=== PATIENT | male | born 1950 | race Caucasian/White ===

== ENCOUNTER 2017-01-16 05:25 | Day surgery (SDC) | payer MEDICARE, OTHER ==
[2017-01-14 10:16] LABS: HEMOGLOBIN 13.3 g/dL (13.6-17.8)
[2017-01-14 10:22] LABS: HEMATOCRIT 41.1 % (40.0-51.0)
[2017-01-14 10:34] LABS: BUN (BLOOD UREA NITROGEN) 51 MG/DL (6-23); CHLORIDE, SERUM 103 MMOL/L (96-112); CO2 (CARBON DIOXIDE) 28 MMOL/L (24-34); GFR AFRICAN AMERICAN 39 ML/MIN (>=60); GFR NON AFRICAN AMERICAN 34 ML/MIN (>=60); GLUCOSE, SERUM 104 MG/DL (60-99); POTASSIUM, SERUM 4.1 MMOL/L (3.5-5.3); SODIUM, SERUM 141 MMOL/L (135-148)
--- NOTE | ~2017-01-16 | OP ---
Record Of Operation [facility] [address] [facility] [place]. [address] NAME: MEGA COVARRUBIAS : 50 STATUS : [facility]#: [id number] AGE: 66 ADM/REG DATE : 01/16/17 MR#: [id number] REPORT SERV DATE: 01/16/17 DICTATED BY: CLAUDIO ARZOLA DATE: 01/16/17 REPORT STATUS : Draft TRANSCRIBED BY: MODL DATE: 01/16/17 DATE OF PROCEDURE: 01/16/2017 PREOPERATIVE DIAGNOSIS: Squamous cell carcinoma, coronal scalp. POSTOPERATIVE DIAGNOSIS: Squamous cell carcinoma, coronal scalp. PROCEDURE PERFORMED: 1. Wide local excision, squamous cell carcinoma, scalp. 2. Outer table craniectomy. 3. Full-thickness skin graft reconstruction of 5 cm x 5 cm defect. SURGEON: Claudio Arzola M.D. [employer]ILITY OPERATOR: Hunter Figueroa M.D. ANESTHESIA: General. COMPLICATIONS: None. CONDITION: Stable to recovery. INDICATIONS: A 66-year-old male with a history of heart and lung transplant with squamous cell carcinoma of the left coronal scalp. PROCEDURE IN DETAIL: The patient was identified in preoperative holding, taken back to the operating room, and placed supine on the operating room table. General anesthesia was established. He was prepped and draped in standard fashion for the operation. A time-out was called. The patient and procedure were confirmed. A 1 cm margin was marked around the left coronal scalp squamous cell carcinoma and infiltrated subcutaneously with 1% lidocaine with 1:100,000 epinephrine. The left supraclavicular fossa was outlined with a surgical marking pen in an elliptical fashion for the full-thickness skin graft. Both areas were infiltrated subcutaneously with 1% lidocaine with 1:100,000 epinephrine. A total of 8 mL was used. Using 2.5x loupe magnification and headlight illumination, the operation was commenced. A needle-tip cautery set on 15 CUT 25 COAG was used to excise around the lesion of the scalp using both the CUT and COAG modes. The incision went down to the galea, and we elevated the tissue off the skull deep to the galea and superficial to the pericranium. Toward the central portion of the lesion, the tumor did appear to extend to the pericranium, so we went deep to the pericranium exposing the bald skull. We stitched that specimen at 12 o'clock superior anterior and sent it for frozen section. The frozen section showed no evidence of persistent cancer deeper on peripheral margins. The defect measured 5 cm x 5 cm. The left supraclavicular fossa, full-thickness skin graft was harvested with needle tip cautery. It was meshed with a 15 blade and inset to the wound Record Of [address] [address] NAME: MEGA COVARRUBIAS : 50 STATUS : [facility]#: [id number] AGE: 66 ADM/REG DATE : 01/16/17 MR#: [id number] REPORT SERV DATE: 01/16/17 DICTATED BY: CLAUDIO ARZOLA DATE: 01/16/17 REPORT STATUS : Draft TRANSCRIBED BY: NAHOMI DATE: 01/16/17 with 4-0 chromic suture. A bolster dressing was placed with Xeroform gauze and saline- soaked cotton balls using 2-0 silk sutures. The donor site was closed in two layers using 3 0 Vicryl suture for the platysma and for the subcuticular space followed by Dermabond and Steri-Strips. The patient was awakened and taken to recovery in a stable condition. There were no complications. PH/NAHOMI Claudio Arzola M.D. / [id number] CC: Marin Skaggs M.D.
[~2017-01-16 05:25] MED LIST: ACIDOPHILU2 PO; APRES25 PO; ASAB PO; BAC PO; BACTRIM DS1 TAB PO; FERRETTS325 MG PO; FERROUS SULF325 M1 PO; FOLIC PO; IRON160 MG PO; LOP50 PO; MULTIPLE VIT PO; P5 PO; PRILO PO; PROGRAF0.5 PO; PROGRAF1 PO; RAPAMUNE PO; REG5 PO; SPORANOX PO; STOOL SOFTEN100 MG PO; STOOL SOFTENER PO; VITD PO; ZITH250 PO; ZOCOR20 PO
[2017-06-17] MEDS ORDERED: ZYVOXPO PO (12:29)
== END 2017-01-16 11:29 | disposition home or self-care (01) ==
LOC: SDC 05:25
PROVIDERS: Specialist
PROC: 0HR0X73 Replacement of Scalp Skin with Autologous Tissue Substitute, Full Thickness, External Approach (ICD-10-PCS; principal; 2017-01-16 07:15)
DX: C44.42 Squamous cell carcinoma of skin of scalp and neck (principal); N18.3 Chronic kidney disease, stage 3 (moderate); I12.9 Hypertensive chronic kidney disease with stage 1 through stage 4 chronic kidney disease, or unspecified chronic kidney disease; J42 Unspecified chronic bronchitis
CPT/HCPCS: 80048; 85014; 85018; 88305; 88331; 88332; 93005; J0690; J1720; J2250; J2405; J2550; J3010

== ENCOUNTER 2017-06-18 15:03 | Inpatient (IN) | payer MEDICARE, OTHER ==
[~2017-06-18] VITALS: Ht 172.7 cm; Wt 88.5 kg
--- NOTE | ~2017-06-18 | CN ---
Consultation Report [facility] [address] [place]. [address] NAME: MEGA COVARRUBIAS : 50 STATUS : ADM IN PAT#: [id number] AGE: 66 ADM/REG DATE : 06/18/17 MR#: [id number] REPORT SERV DATE: 06/20/17 DICTATED BY: MAXIMILIAN MAYER DATE: 06/19/17 REPORT STATUS : Draft TRANSCRIBED BY: MODL DATE: 06/19/17 CONSULTATION DATE OF CONSULTATION: REASON FOR CONSULTATION: Acute kidney injury. HISTORY OF PRESENT ILLNESS: This is a very pleasant 66-year-old male patient, who was admitted to Dr. Jerry Ferris's service for partial SBO versus severe ileus. He states that over the last 24-48 hours, he has continued to have worsening nausea and has had poor p.o. intake over the last three to five days. He began to have difficulty with emesis over the last 48 hours and presented here to [facility] for evaluation. He is noted to have a small bowel dilation with gas and stool in the colon that likely is consistent with a small-bowel obstruction or severe ileus. We are consulted to evaluate him for acute kidney injury. He is followed in the outpatient setting by the [facility] for heart and lung transplantation in chronically follows there every six months. He states that his creatinine baseline ranges around 1.7 to 2.02 by his recall. We have last seen him in our office in 2011 post hospitalization with a baseline creatinine around that time, approximately 1.3 to 1.6. The patient denies chronic use of nonsteroidal medications and has had no other difficulty of late according to review this afternoon. His spouse is at bedside. He denies current chest pain. Does have an NG tube to low intermittent suction in place with bilious colored drainage and appears to have no other complaint. PAST MEDICAL HISTORY: Positive for heart and lung transplantation followed closely by the [facility] with chronic immunosuppression. History is also positive for chronic kidney disease, stage 3; anemia; tendency towards hyperkalemia; previous sepsis; history of diverticular abscess; history of ischemic cardiomyopathy; and alpha-1 antitrypsin disease prior to cardiac transplantation; and hypertension. REVIEW OF SYSTEMS: Review of systems is completed. Please see HPI for pertinent details. SOCIAL HISTORY: No ETOH. No illicit drugs. No tobacco. FAMILY HISTORY: Noncontributory and not reviewed during this consultation and dictation. ALLERGIES: HE LISTS NO KNOWN MEDICATION ALLERGIES. ACTIVE MEDICATIONS: Include ASA 81 mg daily; 250 mg prophylaxis of azithromycin daily; Colace 100 mg p.o. daily; vitamin D 50,000 units p.o. q.2 weeks; ferrous sulfate 325 mg p.o. daily; folic acid 1 mg p.o. daily; Apresoline 25 mg p.o. t.i.d.; Sporanox 200 mg p.o. daily; acidophilus one tablet p.o. daily; Zyvox 600 mg p.o. q.12; Lopressor 50 mg p.o. b.i.d.; multivitamin tablet one daily; omeprazole 20 mg p.o. daily; prednisone 5 mg p.o. daily; Zocor 20 mg p.o. at bedtime; Rapamune 0.5 mg p.o. daily; Bactrim one tablet on Saturday, Consultation Report [address] [address] NAME: MEGA COVARRUBIAS : 50 STATUS : ADM IN PAT#: [id number] AGE: 66 ADM/REG DATE : 06/18/17 MR#: [id number] REPORT SERV DATE: 06/20/17 DICTATED BY: MAXIMILIAN MAYER DATE: 06/19/17 REPORT STATUS : Draft TRANSCRIBED BY: NAHOMI DATE: 06/19/17Saturday, Saturday; Prograf 1 mg tablets, 0.5 dosing daily; and an unidentified stool softener. PHYSICAL EXAMINATION: VITAL SIGNS: Blood pressure at 166/86, temperature 97.5, respiratory rate is 16, heart rate 90 beats per minute. He is 2137 in, 1603 out. GENERAL: He is an obese appearing, acutely ill male patient, lying in bed during evaluation. HEENT: Normocephalic and atraumatic. Normal ocular movements. No scleral icterus. No conjunctival pallor is appreciated. He does have an NG tube in his right naris with bilious colored drainage in the canister appears to be low intermittent suction. NECK: Supple without thyromegaly. No JVD or mass. CHEST: Shows positive S1 and S2. No rubs or gallops. LUNGS: Diminished throughout. Normal expansion and effort bilaterally. No rhonchi or wheezes are appreciated on auscultation. GI: Examination shows a rounded abdomen, obese, non-firm. No evidence of overt ascites with some tenderness is elicited to palpation in his right lower quadrant. : Deferred. NEUROLOGIC: Appears to be grossly intact. Nonfocal. SKIN: Warm, dry, and intact to visualized surfaces. No rash, lesions, or ecchymosis. EXTREMITIES: Show positive pulses to all four extremities. He does have noted lower extremity edema bilaterally, pitting approximately +1 to +2, which he states is chronic for him and is related to his sodium intake. LABORATORY DATA: Pertinent laboratories and imaging to this evaluation. Abdominal imaging indicates probable small-bowel obstruction versus severe ileus with NG tube in place. Most recent CBC shows white blood count 7.1, RBC 3.29, hemoglobin 8.5, hematocrit 27.2, platelets at 78. Comprehensive metabolic panel: Sodium 137, potassium 4.9, chloride 100, CO2 of 33, BUN 31, creatinine at 2.23. Reflected GFR at 30 mL/minute. Calcium 8.1, albumin 2.78. ALT and AST are 17 and 18 respectively. Urinalysis; negative for protein and glucose. Minimal white blood cells and red blood cells. IMPRESSION AND PLAN: This is a 66-year-old male patient, followed in the outpatient setting chronically by the [facility] for heart and lung transplantation. He states his creatinine baseline is 1.7 to 2.03. He was previously seen in [id number] by our service and with last available data at the hospital on 11/12/2012 at 1.6 creatinine on discharge home. He reports to [facility] with recent difficulty with p.o. intake and recent nausea and vomiting with elevated creatinine and noted SBO versus ileus. He does not appear to be on offensive medications. It is likely volume contracted due to his nausea and vomiting and poor p.o. intake. We will check urine studies. Check postvoid residual. Check renal ultrasound for completeness treatment. Defer major medical management to the primary team and hospitalist service. He will be evaluated by Infectious Disease with known medical history as listed above, and he is previously known by Dr. Romero, who saw him during a previous admission for a sepsis diagnosis. We will check as well Prograf and Rapamune levels and continue immunosuppressants as are in place for his heart and lung Consultation Report [facility] [address] [place]. [address] NAME: MEGA COVARRUBIAS : 50 STATUS : ADM IN PAT#: [id number] AGE: 66 ADM/REG DATE : 06/18/17 MR#: [id number] REPORT SERV DATE: 06/20/17 DICTATED BY: MAXIMILIAN MAYER DATE: 06/19/17 REPORT STATUS : Draft TRANSCRIBED BY: MODL DATE: 06/19/17 transplantation. Further modification of treatment plan may be made based on clinical presentation of the patient, laboratory results, and further consultation with renal attending. We appreciate consultation. We are glad to follow. DICTATED BY: Cristobal Souza NP JR/NAHOMI Maximilian Mayer M.D. / [id number] CC: Marin Rivera M.D.
[~2017-06-18 15:03] MED LIST changes: +ZYVOXPO PO
[2017-06-18 17:41] LABS: CALCIUM, SERUM 8.6 MG/DL (8.5-10.4); CHLORIDE, SERUM 100 MMOL/L (96-112); CO2 (CARBON DIOXIDE) 28 MMOL/L (24-34); CREATININE 2.43 MG/DL (0.70-1.30); GFR AFRICAN AMERICAN 31 ML/MIN (>=60); GFR NON AFRICAN AMERICAN 27 ML/MIN (>=60); POTASSIUM, SERUM 4.5 MMOL/L (3.5-5.3); SGOT(AST) 17 U/L (5-40); SGPT(ALT) 22 U/L (5-65); SODIUM, SERUM 136 MMOL/L (135-148); TOTAL BILIRUBIN 0.5 MG/DL (0-1.2); TOTAL PROTEIN 6.5 G/DL (6.0-8.5)
[2017-06-18 17:42] LABS: A/G RATIO 0.9 (0.7-1.9); ALKALINE PHOSPHATASE 85 U/L (45-117); BUN (BLOOD UREA NITROGEN) 33 MG/DL (6-23); GLOBULIN 3.5 G/DL (2.5-4.1); GLUCOSE, SERUM 132 MG/DL (60-99)
[2017-06-18 18:03] LABS: BASOPHILS 0.2 %; BASOPHILS ABSOLUTE 0.02 10/3/uL (0.0-0.16); EOSINOPHILS 0.2 %; EOSINOPHILS ABSOLUTE 0.02 10/3/uL (0.0-0.53); HEMOGLOBIN 9.2 g/dL (13.6-17.8); IMMATURE GRANULOCYTES 0.9 %; IMMATURE GRANULOCYTES ABSOLUTE 0.07 10/3/uL (0.0-0.11); LYMPHOCYTES 9.2 %; LYMPHOCYTES ABSOLUTE 0.75 10/3/uL (0.67-4.30); MEAN CORPUS HGB CONC 31.7 g/dL (32.0-36.0); MEAN PLATELET VOLUME 9.3 fL (9.2-13.0); MONOCYTES 7.6 %; MONOCYTES ABSOLUTE 0.62 10/3/uL (0.21-1.20); NEUTROPHILS 81.9 %; NEUTROPHILS ABSOLUTE 6.64 10/3/uL (2.02-8.40); RBC DISTRIBUTION WIDTH 15.8 % (12.0-16.0); RED CELL COUNT 3.56 10/6/uL (4.7-6.1); WHITE BLOOD CELLS 8.1 10/3/uL (4.5-10.5)
[2017-06-18 18:05] LABS: MEAN CORPUSCULAR HEMOGLOB 25.8 pg (26.0-34.0); MEAN CORPUSCULAR VOLUME 81.5 fL (80-100); PLATELET COUNT 102 10/3/uL (150-400)
[2017-06-18 18:06] LABS: MANUAL DIFF NO %
[2017-06-19 00:32] LABS: ASCORBIC ACID (UR NOT ORDER) NEG (NEG); BILIRUBIN, URINE NEGATIVE (NEG); KETONE, URINE NEGATIVE (NEG); LEUKOCYTE ESTERASE(NOT OR NEG (NEG); WBC (NOT ORDERED) (RFLEX) 2 (0-5)
[2017-06-19 04:07] LABS: BASOPHILS 0.3 %; BASOPHILS ABSOLUTE 0.02 10/3/uL (0.0-0.16); EOSINOPHILS 2.5 %; EOSINOPHILS ABSOLUTE 0.18 10/3/uL (0.0-0.53); HEMATOCRIT 27.2 % (40.0-51.0); HEMOGLOBIN 8.5 g/dL (13.6-17.8); IMMATURE GRANULOCYTES 0.3 %; IMMATURE GRANULOCYTES ABSOLUTE 0.02 10/3/uL (0.0-0.11); LYMPHOCYTES 10.1 %; LYMPHOCYTES ABSOLUTE 0.72 10/3/uL (0.67-4.30); MANUAL DIFF NO %; MEAN CORPUS HGB CONC 31.3 g/dL (32.0-36.0); MEAN CORPUSCULAR HEMOGLOB 25.8 pg (26.0-34.0); MEAN CORPUSCULAR VOLUME 82.7 fL (80-100); MEAN PLATELET VOLUME 8.7 fL (9.2-13.0); MONOCYTES 10.5 %; MONOCYTES ABSOLUTE 0.75 10/3/uL (0.21-1.20); NEUTROPHILS 76.3 %; NEUTROPHILS ABSOLUTE 5.43 10/3/uL (2.02-8.40); PLATELET COUNT 78 10/3/uL (150-400); RBC DISTRIBUTION WIDTH 15.9 % (12.0-16.0); RED CELL COUNT 3.29 10/6/uL (4.7-6.1); WHITE BLOOD CELLS 7.1 10/3/uL (4.5-10.5)
[2017-06-19 04:22] LABS: A/G RATIO 0.9 (0.7-1.9); ALBUMIN 2.7 G/DL (3.5-5.0); BUN (BLOOD UREA NITROGEN) 31 MG/DL (6-23); CALCIUM, SERUM 8.1 MG/DL (8.5-10.4); CHLORIDE, SERUM 100 MMOL/L (96-112); CREATININE 2.23 MG/DL (0.70-1.30); GFR AFRICAN AMERICAN 34 ML/MIN (>=60); GFR NON AFRICAN AMERICAN 30 ML/MIN (>=60); GLOBULIN 3.1 G/DL (2.5-4.1); GLUCOSE, SERUM 131 MG/DL (60-99); POTASSIUM, SERUM 4.9 MMOL/L (3.5-5.3); SGOT(AST) 18 U/L (5-40); SGPT(ALT) 17 U/L (5-65); SODIUM, SERUM 137 MMOL/L (135-148); TOTAL BILIRUBIN 0.3 MG/DL (0-1.2); TOTAL PROTEIN 5.8 G/DL (6.0-8.5)
[2017-06-19 04:25] LABS: ALKALINE PHOSPHATASE 72 U/L (45-117); CO2 (CARBON DIOXIDE) 33 MMOL/L (24-34)
[2017-06-19 04:48] LABS: PLATELET ESTIMATE DEC (ADEQUATE)
[2017-06-19 04:49] LABS: GIANT PLATELET OCC
[2017-06-20 05:59] LABS: BASOPHILS 0.2 %; BASOPHILS ABSOLUTE 0.01 10/3/uL (0.0-0.16); EOSINOPHILS 2.6 %; EOSINOPHILS ABSOLUTE 0.15 10/3/uL (0.0-0.53); HEMATOCRIT 26.1 % (40.0-51.0); HEMOGLOBIN 8.3 g/dL (13.6-17.8); IMMATURE GRANULOCYTES 0.3 %; IMMATURE GRANULOCYTES ABSOLUTE 0.02 10/3/uL (0.0-0.11); LYMPHOCYTES 10.7 %; LYMPHOCYTES ABSOLUTE 0.61 10/3/uL (0.67-4.30); MEAN CORPUS HGB CONC 31.8 g/dL (32.0-36.0); MEAN CORPUSCULAR HEMOGLOB 26.1 pg (26.0-34.0); MEAN CORPUSCULAR VOLUME 82.1 fL (80-100); MEAN PLATELET VOLUME 8.9 fL (9.2-13.0); MONOCYTES 11.4 %; MONOCYTES ABSOLUTE 0.65 10/3/uL (0.21-1.20); NEUTROPHILS 74.8 %; NEUTROPHILS ABSOLUTE 4.28 10/3/uL (2.02-8.40); PLATELET COUNT 70 10/3/uL (150-400); RED CELL COUNT 3.18 10/6/uL (4.7-6.1); WHITE BLOOD CELLS 5.7 10/3/uL (4.5-10.5)
[2017-06-20 06:01] LABS: MANUAL DIFF NO %
[2017-06-20 06:17] LABS: ALBUMIN 2.4 G/DL (3.5-5.0); BUN (BLOOD UREA NITROGEN) 26 MG/DL (6-23); CALCIUM, SERUM 7.6 MG/DL (8.5-10.4); CHLORIDE, SERUM 100 MMOL/L (96-112); CO2 (CARBON DIOXIDE) 31 MMOL/L (24-34); CREATININE 1.93 MG/DL (0.70-1.30); GFR AFRICAN AMERICAN 41 ML/MIN (>=60); GFR NON AFRICAN AMERICAN 35 ML/MIN (>=60); GLUCOSE, SERUM 121 MG/DL (60-99); PHOSPHORUS, SERUM 2.2 MG/DL (2.5-4.5); POTASSIUM, SERUM 4.6 MMOL/L (3.5-5.3); SODIUM, SERUM 136 MMOL/L (135-148)
[2017-06-20 06:43] LABS: PLATELET ESTIMATE DEC (ADEQUATE)
[2017-06-20 06:44] LABS: POLYCHROMASIA 1+ (2-5/OIF) (0-1/OIF)
[2017-06-21 06:32] LABS: A/G RATIO 0.8 (0.7-1.9); ALBUMIN 2.6 G/DL (3.5-5.0); ALKALINE PHOSPHATASE 85 U/L (45-117); BUN (BLOOD UREA NITROGEN) 30 MG/DL (6-23); CHLORIDE, SERUM 100 MMOL/L (96-112); CO2 (CARBON DIOXIDE) 30 MMOL/L (24-34); GFR AFRICAN AMERICAN 37 ML/MIN (>=60); GFR NON AFRICAN AMERICAN 32 ML/MIN (>=60); GLOBULIN 3.2 G/DL (2.5-4.1); GLUCOSE, SERUM 100 MG/DL (60-99); PHOSPHORUS, SERUM 3.1 MG/DL (2.5-4.5); POTASSIUM, SERUM 4.6 MMOL/L (3.5-5.3); SGOT(AST) 29 U/L (5-40); SGPT(ALT) 33 U/L (5-65); SODIUM, SERUM 135 MMOL/L (135-148); TOTAL BILIRUBIN 0.3 MG/DL (0-1.2); TOTAL PROTEIN 5.8 G/DL (6.0-8.5)
[2017-06-21 06:35] LABS: BASOPHILS 0.3 %; BASOPHILS ABSOLUTE 0.02 10/3/uL (0.0-0.16); EOSINOPHILS ABSOLUTE 0.18 10/3/uL (0.0-0.53); HEMATOCRIT 26.7 % (40.0-51.0); HEMOGLOBIN 8.4 g/dL (13.6-17.8); IMMATURE GRANULOCYTES 0.2 %; IMMATURE GRANULOCYTES ABSOLUTE 0.01 10/3/uL (0.0-0.11); LYMPHOCYTES 15.2 %; MEAN CORPUS HGB CONC 31.5 g/dL (32.0-36.0); MEAN CORPUSCULAR HEMOGLOB 26.3 pg (26.0-34.0); MEAN CORPUSCULAR VOLUME 83.4 fL (80-100); MEAN PLATELET VOLUME 9.5 fL (9.2-13.0); MONOCYTES 14.5 %; MONOCYTES ABSOLUTE 0.86 10/3/uL (0.21-1.20); NEUTROPHILS 66.8 %; NEUTROPHILS ABSOLUTE 3.95 10/3/uL (2.02-8.40); PLATELET COUNT 72 10/3/uL (150-400); RBC DISTRIBUTION WIDTH 15.9 % (12.0-16.0); WHITE BLOOD CELLS 5.9 10/3/uL (4.5-10.5)
[2017-06-21 06:37] LABS: MANUAL DIFF NO %
[2017-06-21 13:53] LABS: HEPARIN-INDUCED PLATELET AB NEGATIVE (NEGATIVE); HIT PATIENT O.D. 0.028 OD (0.000-0.299)
[2017-06-21] MEDS ORDERED: FERROUS SULF325 M1 PO (14:19)
[2017-06-21] MEDS ORDERED: SLOW RELEASE IRON PO (14:20)
[2017-06-21] MEDS ORDERED: ZITH250 PO (14:20)
[2017-06-21] MEDS ORDERED: HALF81 PO (14:20)
[2017-06-21] MEDS ORDERED: ZOCOR40 PO (14:21)
[2017-06-21] MEDS ORDERED: ZYVOXPO PO (14:21)
[2017-06-21] MEDS ORDERED: FOLIC PO (14:21)
[2017-06-21] MEDS ORDERED: SPORANOX PO (14:21)
[2017-06-21] MEDS ORDERED: DSS PO (14:22)
[2017-06-21] MEDS ORDERED: ACIDOPHILU2 PO (14:22)
[2017-06-21] MEDS ORDERED: MULTIVIT/MIN PO (14:22)
[2017-06-21] MEDS ORDERED: RAPAMUNE PO (14:23)
[2017-06-21] MEDS ORDERED: LOP50 PO (14:23)
[2017-06-21] MEDS ORDERED: P5 PO (14:23)
[2017-06-21] MEDS ORDERED: VITD PO (14:23)
[2017-06-21] MEDS ORDERED: APRES25 PO (14:24)
[2017-06-21] MEDS ORDERED: PROGRAF1 PO (14:25)
[2017-06-21] MEDS ORDERED: BACTRIM DS1 TAB PO (14:25)
[2017-06-21] MEDS ORDERED: PRILO PO (14:25)
[2017-06-22 04:26] LABS: BASOPHILS 0.2 %; BASOPHILS ABSOLUTE 0.01 10/3/uL (0.0-0.16); EOSINOPHILS 0.7 %; EOSINOPHILS ABSOLUTE 0.04 10/3/uL (0.0-0.53); HEMOGLOBIN 7.2 g/dL (13.6-17.8); IMMATURE GRANULOCYTES 0.3 %; IMMATURE GRANULOCYTES ABSOLUTE 0.02 10/3/uL (0.0-0.11); LYMPHOCYTES 11.5 %; LYMPHOCYTES ABSOLUTE 0.69 10/3/uL (0.67-4.30); MEAN CORPUS HGB CONC 31.7 g/dL (32.0-36.0); MEAN CORPUSCULAR HEMOGLOB 26.2 pg (26.0-34.0); MEAN CORPUSCULAR VOLUME 82.5 fL (80-100); MEAN PLATELET VOLUME 9.3 fL (9.2-13.0); MONOCYTES 9.5 %; MONOCYTES ABSOLUTE 0.57 10/3/uL (0.21-1.20); NEUTROPHILS 77.8 %; NEUTROPHILS ABSOLUTE 4.67 10/3/uL (2.02-8.40); PLATELET COUNT 68 10/3/uL (150-400); RBC DISTRIBUTION WIDTH 15.5 % (12.0-16.0); RED CELL COUNT 2.75 10/6/uL (4.7-6.1)
[2017-06-22 04:30] LABS: HEMATOCRIT 22.7 % (40.0-51.0); MANUAL DIFF NO %
[2017-06-22 04:41] LABS: ALBUMIN 2.4 G/DL (3.5-5.0); CALCIUM, SERUM 7.5 MG/DL (8.5-10.4); CHLORIDE, SERUM 105 MMOL/L (96-112); CO2 (CARBON DIOXIDE) 29 MMOL/L (24-34); CREATININE 2.07 MG/DL (0.70-1.30); GFR AFRICAN AMERICAN 38 ML/MIN (>=60); GFR NON AFRICAN AMERICAN 32 ML/MIN (>=60); PHOSPHORUS, SERUM 2.5 MG/DL (2.5-4.5); POTASSIUM, SERUM 5.2 MMOL/L (3.5-5.3); SODIUM, SERUM 139 MMOL/L (135-148)
[2017-06-22 04:43] LABS: BUN (BLOOD UREA NITROGEN) 25 MG/DL (6-23); GLUCOSE, SERUM 133 MG/DL (60-99)
[2017-06-22 11:59] LABS: BASOPHILS 0.1 %; BASOPHILS ABSOLUTE 0.01 10/3/uL (0.0-0.16); EOSINOPHILS 1.7 %; EOSINOPHILS ABSOLUTE 0.13 10/3/uL (0.0-0.53); IMMATURE GRANULOCYTES 0.3 %; IMMATURE GRANULOCYTES ABSOLUTE 0.02 10/3/uL (0.0-0.11); LYMPHOCYTES 8.1 %; LYMPHOCYTES ABSOLUTE 0.63 10/3/uL (0.67-4.30); MEAN CORPUSCULAR VOLUME 83.8 fL (80-100); MEAN PLATELET VOLUME 10.1 fL (9.2-13.0); MONOCYTES ABSOLUTE 0.78 10/3/uL (0.21-1.20); NEUTROPHILS 79.8 %; NEUTROPHILS ABSOLUTE 6.23 10/3/uL (2.02-8.40); PLATELET COUNT 81 10/3/uL (150-400); RBC DISTRIBUTION WIDTH 15.7 % (12.0-16.0); RED CELL COUNT 3.08 10/6/uL (4.7-6.1); WHITE BLOOD CELLS 7.8 10/3/uL (4.5-10.5)
[2017-06-22 12:01] LABS: HEMATOCRIT 25.8 % (40.0-51.0); MANUAL DIFF NO %
[2017-06-22 12:11] LABS: BUN (BLOOD UREA NITROGEN) 23 MG/DL (6-23); CALCIUM, SERUM 7.9 MG/DL (8.5-10.4); CHLORIDE, SERUM 103 MMOL/L (96-112); CO2 (CARBON DIOXIDE) 29 MMOL/L (24-34); CREATININE 2.11 MG/DL (0.70-1.30); GFR AFRICAN AMERICAN 37 ML/MIN (>=60); GFR NON AFRICAN AMERICAN 32 ML/MIN (>=60); GLUCOSE, SERUM 120 MG/DL (60-99); POTASSIUM, SERUM 4.5 MMOL/L (3.5-5.3); SODIUM, SERUM 138 MMOL/L (135-148)
[2017-06-23 06:48] LABS: ALBUMIN 2.6 G/DL (3.5-5.0); BUN (BLOOD UREA NITROGEN) 20 MG/DL (6-23); CALCIUM, SERUM 7.7 MG/DL (8.5-10.4); CHLORIDE, SERUM 104 MMOL/L (96-112); CO2 (CARBON DIOXIDE) 31 MMOL/L (24-34); CREATININE 2.02 MG/DL (0.70-1.30); GFR AFRICAN AMERICAN 39 ML/MIN (>=60); GFR NON AFRICAN AMERICAN 33 ML/MIN (>=60); GLUCOSE, SERUM 127 MG/DL (60-99); PHOSPHORUS, SERUM 2.4 MG/DL (2.5-4.5); POTASSIUM, SERUM 4.4 MMOL/L (3.5-5.3); SODIUM, SERUM 138 MMOL/L (135-148)
[2017-06-23 10:50] LABS: BASOPHILS 0.3 %; BASOPHILS ABSOLUTE 0.02 10/3/uL (0.0-0.16); EOSINOPHILS 3.1 %; EOSINOPHILS ABSOLUTE 0.24 10/3/uL (0.0-0.53); HEMATOCRIT 24.5 % (40.0-51.0); HEMOGLOBIN 7.7 g/dL (13.6-17.8); IMMATURE GRANULOCYTES 0.9 %; IMMATURE GRANULOCYTES ABSOLUTE 0.07 10/3/uL (0.0-0.11); LYMPHOCYTES 20.6 %; MEAN CORPUS HGB CONC 31.4 g/dL (32.0-36.0); MEAN CORPUSCULAR HEMOGLOB 25.5 pg (26.0-34.0); MEAN PLATELET VOLUME 9.4 fL (9.2-13.0); MONOCYTES 18.3 %; MONOCYTES ABSOLUTE 1.42 10/3/uL (0.21-1.20); NEUTROPHILS 56.8 %; NEUTROPHILS ABSOLUTE 4.42 10/3/uL (2.02-8.40); NUCLEATED RED BLOOD CELLS 0.4 /100WBC (0-0); PLATELET COUNT 91 10/3/uL (150-400); RBC DISTRIBUTION WIDTH 15.5 % (12.0-16.0); RED CELL COUNT 3.02 10/6/uL (4.7-6.1); WHITE BLOOD CELLS 7.8 10/3/uL (4.5-10.5)
[2017-06-23 10:51] LABS: MANUAL DIFF NO %; MEAN CORPUSCULAR VOLUME 81.1 fL (80-100)
[2017-06-24 04:15] LABS: BASOPHILS 0.3 %; BASOPHILS ABSOLUTE 0.02 10/3/uL (0.0-0.16); EOSINOPHILS 2.2 %; EOSINOPHILS ABSOLUTE 0.15 10/3/uL (0.0-0.53); HEMOGLOBIN 6.4 g/dL (13.6-17.8); IMMATURE GRANULOCYTES 4.2 %; IMMATURE GRANULOCYTES ABSOLUTE 0.29 10/3/uL (0.0-0.11); LYMPHOCYTES 13.5 %; LYMPHOCYTES ABSOLUTE 0.93 10/3/uL (0.67-4.30); MEAN CORPUS HGB CONC 31.2 g/dL (32.0-36.0); MEAN CORPUSCULAR HEMOGLOB 25.7 pg (26.0-34.0); MEAN CORPUSCULAR VOLUME 82.3 fL (80-100); MEAN PLATELET VOLUME 8.8 fL (9.2-13.0); MONOCYTES 17.8 %; MONOCYTES ABSOLUTE 1.22 10/3/uL (0.21-1.20); NEUTROPHILS ABSOLUTE 4.26 10/3/uL (2.02-8.40); PLATELET COUNT 75 10/3/uL (150-400); RBC DISTRIBUTION WIDTH 15.3 % (12.0-16.0); RED CELL COUNT 2.49 10/6/uL (4.7-6.1); WHITE BLOOD CELLS 6.9 10/3/uL (4.5-10.5)
[2017-06-24 04:16] LABS: HEMATOCRIT 20.5 % (40.0-51.0)
[2017-06-24 04:17] LABS: MANUAL DIFF NO %
[2017-06-24 04:23] LABS: ALBUMIN 2.4 G/DL (3.5-5.0); BUN (BLOOD UREA NITROGEN) 17 MG/DL (6-23); CALCIUM, SERUM 7.5 MG/DL (8.5-10.4); CHLORIDE, SERUM 107 MMOL/L (96-112); CO2 (CARBON DIOXIDE) 30 MMOL/L (24-34); CREATININE 1.85 MG/DL (0.70-1.30); GFR AFRICAN AMERICAN 43 ML/MIN (>=60); GFR NON AFRICAN AMERICAN 37 ML/MIN (>=60); GLUCOSE, SERUM 141 MG/DL (60-99); PHOSPHORUS, SERUM 2.2 MG/DL (2.5-4.5); POTASSIUM, SERUM 4.8 MMOL/L (3.5-5.3); SODIUM, SERUM 142 MMOL/L (135-148)
[2017-06-24 06:13] LABS: PLATELET ESTIMATE DEC (ADEQUATE); RBC MORPHOLOGY NORM (NORMAL)
[2017-06-24 08:54] LABS: HEMOGLOBIN 7.5 g/dL (13.6-17.8); MEAN CORPUS HGB CONC 31.6 g/dL (32.0-36.0); MEAN CORPUSCULAR HEMOGLOB 26.2 pg (26.0-34.0); MEAN CORPUSCULAR VOLUME 82.9 fL (80-100); MEAN PLATELET VOLUME 8.6 fL (9.2-13.0); PLATELET COUNT 93 10/3/uL (150-400); RBC DISTRIBUTION WIDTH 15.3 % (12.0-16.0); RED CELL COUNT 2.86 10/6/uL (4.7-6.1); WHITE BLOOD CELLS 8.7 10/3/uL (4.5-10.5)
[2017-06-24 09:03] LABS: HEMATOCRIT 23.7 % (40.0-51.0); MANUAL DIFF YES %
[2017-06-24 09:27] LABS: BAND NEUTROPHILS 7 %; EOSINOPHILS 2 %; EOSINOPHILS ABSOLUTE (CALC) 0.17 10/3/uL (0.0-0.53); IMMATURE GRANS ABSOLUTE (CALC) 0.26 10/3/uL (0.0-0.11); LYMPHOCYTES 13 %; LYMPHOCYTES ABSOLUTE (CALC) 1.13 10/3/uL (0.67-4.30); METAMYELOCYTES 2 %; MONOCYTES 13 %; MONOCYTES ABSOLUTE (CALC) 1.13 10/3/uL (0.21-1.20); MYELOCYTES 1 %; PLATELET ESTIMATE DEC (ADEQUATE); REACTIVE LYMPHS OCC (0-2%) (0-5%); SEGMENTED NEUTROPHIL (0) 62 %; TOTAL NUCLEATED CELLS 100
[2017-06-24 09:28] LABS: RBC MORPHOLOGY NORM (NORMAL)
[2017-06-24 15:42] LABS: % IRON SAT 19 % (20-50); CK-MB 0.8 NG/ML; CPK 44 U/L (0-200); FERRITIN 286 NG/ML (26-388); FOLATE 17.3 NG/ML (>5.2); IRON BINDING CAPACITY 189 MCG/DL (250-450); IRON, SERUM 35 MCG/DL (35-150)
[2017-06-25 04:16] LABS: HEMATOCRIT 21.8 % (40.0-51.0); MEAN CORPUS HGB CONC 31.2 g/dL (32.0-36.0); MEAN CORPUSCULAR HEMOGLOB 25.7 pg (26.0-34.0); MEAN CORPUSCULAR VOLUME 82.3 fL (80-100); MEAN PLATELET VOLUME 8.9 fL (9.2-13.0); PLATELET COUNT 101 10/3/uL (150-400); RBC DISTRIBUTION WIDTH 15.5 % (12.0-16.0); RED CELL COUNT 2.65 10/6/uL (4.7-6.1); WHITE BLOOD CELLS 7.9 10/3/uL (4.5-10.5)
[2017-06-25 04:17] LABS: HEMOGLOBIN 6.8 g/dL (13.6-17.8); MANUAL DIFF YES %
[2017-06-25 04:30] LABS: ALBUMIN 2.6 G/DL (3.5-5.0); BUN (BLOOD UREA NITROGEN) 19 MG/DL (6-23); CALCIUM, SERUM 7.7 MG/DL (8.5-10.4); CHLORIDE, SERUM 106 MMOL/L (96-112); CO2 (CARBON DIOXIDE) 28 MMOL/L (24-34); CREATININE 1.72 MG/DL (0.70-1.30); GFR AFRICAN AMERICAN 47 ML/MIN (>=60); GFR NON AFRICAN AMERICAN 41 ML/MIN (>=60); PHOSPHORUS, SERUM 2.6 MG/DL (2.5-4.5); POTASSIUM, SERUM 4.2 MMOL/L (3.5-5.3); SODIUM, SERUM 141 MMOL/L (135-148)
[2017-06-25 04:31] LABS: GLUCOSE, SERUM 106 MG/DL (60-99)
[2017-06-25 04:34] LABS: BAND NEUTROPHILS 4 %; EOSINOPHILS 3 %; EOSINOPHILS ABSOLUTE (CALC) 0.24 10/3/uL (0.0-0.53); HYPOCHROMIA 1+ (3-10/OIF) (0-2/OIF); IMMATURE GRANS ABSOLUTE (CALC) 0.71 10/3/uL (0.0-0.11); LYMPHOCYTES 25 %; LYMPHOCYTES ABSOLUTE (CALC) 1.98 10/3/uL (0.67-4.30); METAMYELOCYTES 8 %; MONOCYTES 8 %; MONOCYTES ABSOLUTE (CALC) 0.63 10/3/uL (0.21-1.20); MYELOCYTES 1 %; NEUTROPHILS ABSOLUTE (CALC) 4.35 10/3/uL (2.02-8.40); PLATELET ESTIMATE SLT DEC (ADEQUATE); SEGMENTED NEUTROPHIL (0) 51 %; TOTAL NUCLEATED CELLS 100
== END 2017-06-25 14:58 | disposition home or self-care (01) | DRG 389 ==
LOC: ENRESERVTM → ENRESERV → ENRESERVDT → ENPENDDIS 15:13 → 5SO 15:13
PROVIDERS: Internal Medicine Nephrology; Nurse Practitioner; Registered Nurse; Specialist; Surgery
PROC: 02HV33Z Insertion of Infusion Device into Superior Vena Cava, Percutaneous Approach (ICD-10-PCS; principal; 2017-06-25)
DX: K56.60 Unspecified intestinal obstruction (principal); N17.9 Acute kidney failure, unspecified; Z94.3 Heart and lungs transplant status; N18.3 Chronic kidney disease, stage 3 (moderate); D69.59 Other secondary thrombocytopenia; I12.9 Hypertensive chronic kidney disease with stage 1 through stage 4 chronic kidney disease, or unspecified chronic kidney disease; Z79.82 Long term (current) use of aspirin; Z79.52 Long term (current) use of systemic steroids; Z79.899 Other long term (current) drug therapy; D64.9 Anemia, unspecified; T36.8X5A Adverse effect of other systemic antibiotics, initial encounter; Y92.230 Patient room in hospital as the place of occurrence of the external cause; Z79.2 Long term (current) use of antibiotics
CPT/HCPCS: 36415; 36569; 74000; 74020; 74250; 76775; 80048; 80053; 80069; 80195; 80197; 80202; 81001; 82570; 82607; 82728; 82746; 83540; 83550; 83735; 84300; 85025; 86022; 86850; 86900; 86901; 86920; 87493; 87493-59; A9270-GY; C1751; C9113; J0878; J1170; J1720; J2405; J2550; J3370; J7507; J7520